=== PATIENT | female | born 1945 | race Two or more races ===

== ENCOUNTER 2020-01-26 10:49 | Outpatient (CLI) | payer OTHER | END 2020-01-26 11:01 | disposition home or self-care (01) | LOC: MAMO-SONO 10:49 | PROVIDERS: ATTEND Surgery | DX: Z12.31 Encounter for screening mammogram for malignant neoplasm of breast (principal); N60.11 Diffuse cystic mastopathy of right breast; N60.12 Diffuse cystic mastopathy of left breast ==

== ENCOUNTER 2021-04-30 09:31 | Outpatient (CLI) | payer OTHER | END 2021-04-30 09:59 | disposition home or self-care (01) | LOC: MAMO-SONO 09:31 | PROVIDERS: ATTEND Surgery | DX: N60.11 Diffuse cystic mastopathy of right breast (principal); N60.12 Diffuse cystic mastopathy of left breast; Z12.31 Encounter for screening mammogram for malignant neoplasm of breast; R92.1 Mammographic calcification found on diagnostic imaging of breast ==

== ENCOUNTER 2021-12-14 07:16 | Outpatient (CLI) | payer OTHER | END 2021-12-14 07:18 | disposition home or self-care (01) | LOC: NUCLEAR 07:16 | PROVIDERS: ATTEND Internal Medicine Cardiovascular Disease | DX: I25.10 Atherosclerotic heart disease of native coronary artery without angina pectoris (principal) | CPT/HCPCS: 78452; 93017; A9500; J0153 ==

== ENCOUNTER 2022-08-14 07:41 | Outpatient (CLI) | payer OTHER | END 2022-08-14 07:50 | disposition home or self-care (01) | LOC: MAMO-SONO 07:41 | PROVIDERS: ATTEND Surgery | DX: N60.11 Diffuse cystic mastopathy of right breast (principal); N60.12 Diffuse cystic mastopathy of left breast ==

== ENCOUNTER 2023-10-12 21:22 | Inpatient (IN) | payer OTHER ==
[~2023-10-12] VITALS: Ht 162.6 cm; Wt 62.1 kg
[2023-10-12 22:21] LABS: HEMATOCRIT 37.1 % (36.0-45.00); HEMOGLOBIN 12.6 g/dL (12.0-15.00); MEAN CELL VOLUME 104.3 fL (80.00-100.00); MEAN CORPUSCULAR HEMOGLOBIN 35.5 pg (27.00-32.0); MEAN CORPUSCULAR HGB CONC 34.1 g/dl (32.0-36.0); PLATELET COUNT 184 K/uL (150-450); RED BLOOD COUNT 3.56 M/uL (4.00-6.00); RED CELL DISTRIBUTION WIDTH 12.8 % (11.5-14.5)
--- NOTE | 2023-10-12 22:21 | NUR ---
SE RECIBE PTE ALERTA Y ORIENTADA X3 EN LA UNIDAD DE CHEST PAIN DESDE AMBULANCIA. SE CONECTA A PTE A MONITOR CARDIACO Y OXIMETRIA DE PULSO CONTINUA. SE DAYSI MUESTRAS DE LAB BAJO MEDIDAS ASEPTICAS Y SE CANALIZA A PTE CON UN ANGIO #22 EN LT. PTE REFIERE QUE SE ENCONTRABA EN UN CENTRO DE EJERCICIO Y COMENZO A PRESENTAR HIPOTENSION. SE REALIZA EKG Y SE PRESENTA A . AL MOMENTO BP 118/58. SE MANTIENE A PTE BAJO OBSERVACION POR CAMBIOS SIGNIFICATIVOS.
[2023-10-12 22:33] LABS: INR 0.99; PROTHROMBIN TIME 10.4 SECONDS (9.0-11.5)
[2023-10-12 22:38] LABS: ALBUMIN 3.6 gm/dL (3.4-5.0); BILIRUBIN TOTAL 0.48 mg/dL (0.3-1.2); CALCIUM 9.1 mg/dL (8.5-10.1); CREATININE SERUM 1.28 mg/dL (0.55-1.02); GFR 40.33; GLOBULINA 3.2 G/DL (2.4-3.5); POTASSIUM 4.73 mEq/L (3.5-5.1); TOTAL PROTEIN 6.8 gm/dL (6.4-8.2)
[2023-10-12 22:45] LABS: ABG PH 7.429 (7.35-7.45); ABG PO2 93.6 mmHg (80-100); ABG pCO2 37.8 mmHg (35-45); BASE EXCESS 0.5 mmol/l; BICARBONATE 24.5 mmol/l (23-25); SaO2 97.5 %; Tco2 25.7 mmol/l; allen test SATISFACTORY; o2 21 %; puncture site RADIAL LEFT
--- NOTE | 2023-10-12 23:05 | NUR ---
SE RECIBE PTE ALERT Y ORIENTADA X3. CON BUEN PATRON RESPIRATORIO AL MOMENTO DE RECIBIMIENTO, VENOPUNCION #22 EN BRAZO DERECHO Y EXTREMIDADES SUPERIORES EMILIANA DE EDEMA Y ERITEMA. ABDOMEN BLANDO AL TACTO Y PERISTALSIS PRESENTE. EXTREMIDADES INFERIORES LIBRES DE EDEMA Y ERITEMA
[2023-10-13] MEDS ORDERED: 0.9 % SODIUM CHLORIDE 250 ML IV SCH (00:30)
[2023-10-13] MEDS ORDERED: NOREPINEPHRINE BITARTRATE 4 MG in DEXTROSE 5 % IN WATER 250 ML IV SCH (01:00)
--- NOTE | 2023-10-13 02:07 | NUR ---
SE RECIBE A PTE ALERTA Y ORIENTADA X3. CON #22 EN MANO DERECHA. PTE SE ENCUENTRA CON BUEN PATRON RESPIRATORIO AL MOMENTO DE RECIBIMIENTO. EXTREMIDADES SUPERIORES LIBRES DE EDEMA Y ERITEMA. ABDOMEN BLANDO AL TACTO CON PERISTALSIS PRESENTE. EXTREMIDADES INFERIORES EMILIANA DE EDEMA Y ERITEMA.
--- NOTE | 2023-10-13 07:55 | NUR ---
SE RECIBE PACIENTE FEMENINA ALERTA Y ORIENTADA X3 EN AREA DE CHEST PAIN EN CAMA #17 CON BARANDAS ELEVADAS. CONECTADA A MONITOR CARDIACO Y OXIMETRIA DE PULSO. CANALIZADA EN BRAZO DIMA CON 0.9 NSS 1,000 BAJANDO A 150ML/HR Y LEVOPHED 4MG/ D/W 5% BAJANDO A 10ML/HR PATENTES LIBRES DE EDEMA Y ENROJECIMIENTO. SE OBSERVA POR CAMBIOS.
[2023-10-13 10:34] LABS: PH,URINE 5.5 (5.0-8.0); URINE APPEARANCE Clear; URINE BILIRRUBIN Negative (NEGATIVE); URINE BLOOD Negative; URINE COLOR Yellow; URINE GLUCOSE Negative (NEGATIVE); URINE LEUKOCYTE Negative; URINE NITRATE Negative; URINE PROTEIN Negative (NEGATIVE); URINE UROBILINOGEN 0.2 E.U./dl
[2023-10-13 11:24] LABS: URINE BACTERIA 2.5 uL (0.0-1933); URINE EPITHELIAL CELLS 0.3 uL (0.0-38.8); URINE RBC 1.5 uL (0.0-20.8); URINE WBC 0.9 uL (0.0-23.2)
[2023-10-13] MEDS ORDERED: PIPERACILLIN/TAZOBACTAM SODIUM 3.375 GM in DEXTROSE 5 % IN WATER 100 ML IV SCH (14:00)
[2023-10-13] MEDS ORDERED: SODIUM CHLORIDE 0.45 % 1,000 ML IV SCH (15:00)
[2023-10-13] MEDS ORDERED: 0.9 % SODIUM CHLORIDE 1,000 ML IV SCH (15:15)
[2023-10-13] MEDS ORDERED: APIXABAN 5 MG TABLET PO SCH (17:00)
[2023-10-13] MEDS ORDERED: ALPRAzolam 0.25 MG TABLET PO SCH (21:00)
[2023-10-14 07:02] LABS: HEMATOCRIT 29.8 % (36.0-45.00); HEMOGLOBIN 10.4 g/dL (12.0-15.00); MEAN CELL VOLUME 105.7 fL (80.00-100.00); MEAN CORPUSCULAR HEMOGLOBIN 36.9 pg (27.00-32.0); MEAN CORPUSCULAR HGB CONC 34.9 g/dl (32.0-36.0); PLATELET COUNT 133 K/uL (150-450); RED BLOOD COUNT 2.81 M/uL (4.00-6.00); RED CELL DISTRIBUTION WIDTH 12.4 % (11.5-14.5)
[2023-10-14 07:21] LABS: ERYTHROCYTE SEDIMENTATION RATE 19 mm/hr
[2023-10-14 07:25] LABS: INR 1.09; PARTIAL THROMBOPLASTIN TIME 32.5 SECONDS (22.0-34.0); PROTHROMBIN TIME 11.4 SECONDS (9.0-11.5)
[2023-10-14 07:54] LABS: ALBUMIN 2.7 gm/dL (3.4-5.0); BILIRUBIN TOTAL 0.85 mg/dL (0.3-1.2); BILIRUBIN,CONJUGATED 0.27 mg/dL (0.0-0.2); BILIRUBIN,UNCONJUGATED 0.58 mg/dL (0.0-0.6); C-REACTIVE PROTEIN 3.91 MG/DL (0.00-0.29); CALCIUM 7.6 mg/dL (8.5-10.1); CREATININE SERUM 1.02 mg/dL (0.55-1.02); GFR 52.41; GLOBULINA 2.6 G/DL (2.4-3.5); MAGNESIUM 1.4 mg/dL (1.8-2.4); PHOSPHOROUS 3.4 mg/dL (2.5-4.9); POTASSIUM 4.26 mEq/L (3.5-5.1); T4 FREE 1.34 NG/ML (0.76-1.46); TOTAL PROTEIN 5.3 gm/dL (6.4-8.2); TSH 1.74 uIU/mL (0.358-3.74)
[2023-10-14] MEDS ORDERED: ATORVASTATIN CALCIUM 40 MG TABLET PO SCH (09:00)
[2023-10-14] MEDS ORDERED: Cyanocobalamin/Mecobalamin 1 TAB.SL SL SCH (09:00)
[2023-10-14 14:57] LABS: PH,URINE 5.5 (5.0-8.0); URINE APPEARANCE Clear; URINE BILIRRUBIN Negative (NEGATIVE); URINE BLOOD Small; URINE COLOR Yellow; URINE GLUCOSE Negative (NEGATIVE); URINE LEUKOCYTE Negative; URINE NITRATE Negative; URINE PROTEIN Negative (NEGATIVE); URINE UROBILINOGEN 0.2 E.U./dl
[2023-10-14 14:58] LABS: URINE BACTERIA 30.2 uL (0.0-1933); URINE EPITHELIAL CELLS 4.9 uL (0.0-38.8); URINE RBC 47.7 uL (0.0-20.8); URINE WBC 13.9 uL (0.0-23.2)
[2023-10-14] MEDS ORDERED: MAGNESIUM SULFATE IN WATER 50 ML IV NR (18:15)
[2023-10-15] MEDS ORDERED: LEVOTHYROXINE SODIUM 25 MCG TABLET PO SCH (09:00)
[2023-10-15] MEDS ORDERED: LEVOTHYROXINE SODIUM 50 MCG TABLET PO SCH (09:00)
[2023-10-15] MEDS ORDERED: METOPROLOL TARTRATE 25 MG TABLET PO SCH (17:00)
[2023-10-15] MEDS ORDERED: SPIRONOLACTONE 25 MG TABLET PO NR (17:15)
[2023-10-16] MEDS ORDERED: SPIRONOLACTONE 25 MG TABLET PO SCH (09:00)
== END 2023-10-16 14:02 | disposition home or self-care (01) | DRG 316 ==
LOC: ER 21:22 → SEC-K 10-13 15:26 → ICU 10-13 15:26 → MEDI 10-13 16:15 → ICU-2 10-13 16:26 → ICU 10-13 17:51 → MEDI 10-14 20:40
PROVIDERS: General Practice; ADMIT Specialist; ATTEND Specialist
PROC: 4A12X4Z Monitoring of Cardiac Electrical Activity, External Approach (ICD-10-PCS; principal; 2023-10-14)
PROC: B246ZZZ Ultrasonography of Right and Left Heart (ICD-10-PCS; 2023-10-14)
DX: I95.89 Other hypotension (principal); I10 Essential (primary) hypertension; I50.9 Heart failure, unspecified

== ENCOUNTER 2024-03-25 09:22 | Outpatient (CLI) | payer OTHER | END 2024-03-25 09:33 | disposition home or self-care (01) | LOC: MAMO-SONO 09:22 | PROVIDERS: ATTEND Surgery | DX: N60.11 Diffuse cystic mastopathy of right breast (principal); N60.12 Diffuse cystic mastopathy of left breast; Z12.31 Encounter for screening mammogram for malignant neoplasm of breast ==